=== PATIENT | male | born 1965 | race Caucasian/White ===

== ENCOUNTER → 2025-04-04 | Outpatient (CLI) | payer BC, MEDICARE ==
--- NOTE | 2025-04-04 14:41 | HMCIMG ---
EXAM: CT Chest Without IV contrast. CLINICAL HISTORY: Hypoxemia TECHNIQUE: Axial computed tomography images of the chest without intravenous contrast. COMPARISON: None provided. FINDINGS: LUNGS: A few subcentimeter-sized calcified nodules are noted along the apical and posterior segments of the right upper lobe. The rest of the lungs appear essentially clear. PLEURAL SPACES: No pneumothorax evident. No pleural effusions. HEART: No cardiomegaly. No significant pericardial effusion. LYMPH NODES: A few subcentimeter-sized mediastinal lymph nodes are noted. UPPER ABDOMEN: The upper abdominal solid organs are unremarkable. BONES: No acute osseous abnormality. IMPRESSION: 1. No acute intrathoracic findings. /[place]
== END | disposition home or self-care (01) ==
LOC: RAH 12:57
PROVIDERS: ATTEND Internal Medicine Nephrology
DX: R91.8 Other nonspecific abnormal finding of lung field (principal); R09.02 Hypoxemia
CPT/HCPCS: 71250